=== PATIENT | female | born 1970 | race Caucasian/White ===

== ENCOUNTER → 2017-01-17 17:08 | Outpatient (CLI) | payer MEDICARE | END | disposition home or self-care (01) | LOC: D.MAMMO 14:15 | DX: Z12.31 Encounter for screening mammogram for malignant neoplasm of breast (principal) ==

== ENCOUNTER 2017-05-04 09:40 | Day surgery (SDC) | payer OTHER ==
[~2017-05-04] VITALS: Ht 162.6 cm; Wt 115.5 kg
[2017-05-04] MEDS ORDERED: NEURONTIN 300300 MG PO (10:15)
[2017-05-04] MEDS ORDERED: PRINIVIL20 MG PO (10:15)
[2017-05-04] MEDS ORDERED: ZOLOFT100 MG PO (10:15)
[2017-05-04 10:27] VITALS: BP 121/76; Ht 162.6 cm; Wt 115.5 kg
[2017-05-04 11:15] LABS: HEMATOCRIT 39.1 % (36.0-48.0); MCH 30.1 pg (26.0-34.0); MCHC 33.2 g/dL (31.0-37.0); MCV 90.5 fL (80.0-100.0); MEAN PLATELET VOLUME 10.6 fL (7.4-10.4); RBC 4.32 10x6/uL (4.00-5.40); RDW 12.9 % (11.5-14.5); WBC 10.1 10x3/uL (4.8-10.8)
--- NOTE | 2017-05-04 14:42 | NUR ---
1420 DISCHARGE INSTRUCTIONS COMPLETE. PT HAS NO QUESTIONS OR CONCERNS AT THIS TIME. ESCORTED OUT BY VOLUNTEER.
--- NOTE | 2017-05-05 08:48 | OP ---
PATIENT NAME: ROCIO KERNS MEDICAL RECORD: [id number] :66 LOCATION:[facility] ADMISSION DATE: SURGEON: BRITTNEY CONNER DO DATE OF OPERATION: 05/04/2017 PROCEDURE: EGD with biopsies. INDICATION FOR PROCEDURE: Heartburn and nausea. SCOPE: Olympus video gastroscope. MEDICATIONS: Propofol 400 mg IV per anesthesia. ESTIMATED BLOOD LOSS: Minimal. COMPLICATIONS: None. FINDINGS: Informed consent was given. The patient was made comfortable with the above medication. After reaching an adequate level of sedation by slow IV push, the patient was placed on her left side. The endoscope was then advanced under direct visualization through the mouth to the second portion of the duodenum. The upper, middle, and lower thirds of the esophagus appeared normal. At the GE junction, there was mild evidence of LA class A reflux-induced esophagitis. The endoscope was advanced beyond the GE junction into the stomach and retroflexed to view the cardia, where a small sliding hiatal hernia was present. The fundus and body of the stomach appeared normal. In the antrum and prepyloric region, there was some erythema and granularity consistent with possible gastritis. Random biopsies were taken to submit for histology and to rule out H. pylori. Scope was advanced beyond the pylorus into the duodenum where the bulb and second portion of the duodenum appeared normal. The endoscope was then withdrawn from the patient. The patient tolerated the procedure well and there were no complications. IMPRESSION: 1. Mild LA class A reflux-induced esophagitis. 2. Small sliding hiatal hernia. 3. Possible gastritis, biopsies taken. PLAN AND RECOMMENDATIONS: 1. Discharge home when recovery parameters are met. 2. Follow up biopsy specimen results. 3. GERD diet and reflux precautions. 4. Pepcid 40 mg daily for symptoms. 5. Follow up in GI clinic as needed. TRANSINT:[id number] Voice Confirmation ID: [id number] DOCUMENT ID: [id number] OPERATIVE REPORT [id number] ROCIO KERNS BRITTNEY CONNER DO at 0848 CC: [id number] DICTATION DATE: 05/04/17 1341 BICYCLE RACER: 05/04/17 1549 [facility] 05/04/17 [place] [id number]
== END 2017-05-04 14:20 | disposition home or self-care (01) ==
LOC: D.OPS 09:40
PROVIDERS: Anesthesiology
DX: K92.2 Gastrointestinal hemorrhage, unspecified (principal); G47.33 Obstructive sleep apnea (adult) (pediatric); I10 Essential (primary) hypertension; K21.0 Gastro-esophageal reflux disease with esophagitis; F17.200 Nicotine dependence, unspecified, uncomplicated; K44.9 Diaphragmatic hernia without obstruction or gangrene; Z01.812 Encounter for preprocedural laboratory examination